=== PATIENT | male | born 1960 | race Caucasian/White ===

== ENCOUNTER 2017-02-16 18:15 | Emergency (ER) | payer OTHER ==
[~2017-02-16] VITALS: Ht 165.1 cm; Wt 82.0 kg
[~2017-02-16 18:15] MED LIST: ACYC-1 PO; ATOR80TA PO; AUGM875T PO; CLIN150 PO; LISI10TA PO; NAPR220T95 PO; PERC10TA27 PO; UREA20CR TOP
[2017-02-16 18:16] VITALS: BP 144/76; PULSE 86; RESP 20; TEMP 98.7; O2SAT 96
--- NOTE | 2017-02-16 18:23 | PD ---
HPI Chief Complaint: Injury Time Seen by Provider: 18:23 Travel History International Travel<30 days: No Contact w/Intl Traveler<30days: No Traveled to known affect area: No History of Present Illness HPI 56-year-old male presents emergency Department with complaint of left hand pain and left third digit pain after catching a football today and the ball hitting his finger, jamming it. Denies paresthesias, loss of sensation, , decreased range of motion to the affected hand. Pain is to the third metacarpal area. Has not taken any medications or tried any treatments to alleviate his symptoms. Allergies to mulberries. Has no other medical complaints. No other modifying factors or associated signs and symptoms. PFSH Past Medical History Arthritis: No Asthma: No Autoimmune Disease: No Anxiety: No Depression: No Cancer: No Cardiovascular Problems: No High Cholesterol: Yes Chemotherapy: No Chest Pain: No Congestive Heart Failure: No COPD: No Cerebrovascular Accident: No Diabetes: Yes Diminished Hearing: No (UNKNOWN ) Endocrine: No Gastrointestinal Disorders: No GERD: No Genitourinary: No Headaches: No Hiatal Hernia: No Immune Disorder: No Implanted Vascular Access Dvce: No Kidney Stones: No Musculoskeletal: No Neurologic: No Psychiatric: No Reproductive: No Respiratory: No Migraines: No Radiation Therapy: No Renal Failure: No Seizures: No Sickle Cell Disease: No Thyroid Disease: No Ulcer: No Past Surgical History Abdominal Surgery: No Cardiac Surgery: No Ear Surgery: No Endocrine Surgery: No Eye Surgery: No Genitourinary Surgery: Yes (VASECTOMY (1986) PER PATIENT) Neurologic Surgery: No Thoracic Surgery: No Other Surgery: Yes (SWEAT GLAND REMOVED FROM RECTAL AREA) Social History Alcohol Use: No ("QUIT 3 YEARS AGO) Tobacco Use: Yes (1/2 PACK) Substance Use: No ("NOT IN 3 YEARS") Allergies-Medications (Allergen,Severity, Reaction): Uncoded Allergies: Mulberries (Allergy, Severe, HIVES/BODY SWELLING, 08/31/13) PATIENT STATED AROUND 3 YEARS OLD HE BROKE OUT IN HIVES AND HAD SWELLING ALL OVER HIS BODY . PATIENT STATED NO OTHER KNOWN FOOD/DRUG ALLERGIES. Reported Meds & Prescriptions Reported Meds & Active Scripts Active Ibuprofen 800 Mg Tab 800 Mg PO Q6HR PRN Reported Aspirin 81 Mg Chew 81 Mg CHEW DAILY Atorvastatin (Atorvastatin Calcium) 10 Mg Tab 10 Mg PO HS Lisinopril-Hctz 10-12.5 Mg Tab 1 Tab PO DAILY Review of Systems Except as stated in HPI: all other systems reviewed are Neg Physical Exam Narrative GENERAL: Well-nourished, well-developed male patient, in no acute distress SKIN: Warm and dry. HEAD: Atraumatic. Normocephalic. EYES: Pupils equal and round. No scleral icterus. No injection or drainage. ENT: Mucosa pink and moist. Airway patent. NECK: Trachea midline. CARDIOVASCULAR: Regular rate. RESPIRATORY: No accessory muscle use. GASTROINTESTINAL: Rounded. MUSCULOSKELETAL: Left hand with tenderness on palpation at the area of the third metacarpal; with mild edema; without ecchymosis; or erythema; no obvious deformity; all fingers with sensory intact; all fingers with full range of motion. Left upper extremity is supple and non-tense with 2+ radial pulse and sensory intact. No obvious deformities. No clubbing. No cyanosis. NEUROLOGICAL: Awake and alert. Oriented 3. No obvious cranial nerve deficits. Motor grossly within normal limits. Normal speech. PSYCHIATRIC: Appropriate mood and affect; insight and judgment normal. Data Data Last Documented VS Vital Signs Date Time Temp Pulse Resp B/P Pulse Ox O2 Delivery O2 Flow Rate FiO2 02/16/17 18:16 98.7 86 20 144/76 96 Room Air Orders Hand, Complete ([id number]) (02/16/17 18:23) Ice/Cold Pack (02/16/17 18:23) Ibuprofen (Motrin) (02/16/17 18:30) Splint Or Brace Apply/Monitor (02/16/17 19:05) MDM Medical Decision Making Medical Screen Exam Complete: Yes Emergency Medical Condition: Yes Medical Record Reviewed: Yes Differential Diagnosis Finger fracture, finger sprain, hand sprain, hand fracture Narrative Course 56-year-old male with left hand injury. Ibuprofen, ice pack, left hand x-ray ordered. Left hand xray with no acute findings. Álvaro bandage provided for support. Ibuprofen prescribed for home. Instructed patient ot followup with PCP. Discussed reasons to return to the ER. Diagnosis Primary Impression: Injury of left hand Qualified Code: S69.92XA - Injury of left hand, initial encounter Referrals: Primary Care Physician Patient Instructions: Finger Sprain (ED), General Instructions, Hand Sprain (ED ) Additional Instructions: Tylenol or ibuprofen as directed and as needed to reduce pain Rest, ice, compress, and elevate extremity to decrease pain and inflammation Álvaro wrap for support Avoid aggravating activity; increase activity as tolerated Follow-up with primary care provider Return to the emergency department immediately with worsening symptoms Med/Other Pt SpecificInfo: Prescription(s) given Scripts Ibuprofen 800 Mg [id number] Mg PO Q6HR PRN (PAIN) #30 TAB Ref 0 Prov:Machelle Boo 02/16/17 Disposition: 01 DISCHARGE HOME Condition: Stable Machelle Boo February 16, 2017 18:23
[2017-02-16] MEDS ORDERED: LISI10TA PO (18:25)
[2017-02-16] MEDS ORDERED: ATOR10TA15 PO (18:25)
[2017-02-16] MEDS ORDERED: ASPI81CH CHEW (18:25)
[2017-02-16] MEDS ORDERED: IBUPROFEN 800 MG TAB PO ONE (18:30)
[2017-02-16] MEDS ORDERED: IBUP800T23 PO (18:45)
--- NOTE | 2017-02-16 19:10 | RADRPT ---
EXAM DATE/TIME: 02/16/2017 18:40 [facility] COMPARISON: No previous studies available for comparison. INDICATIONS : Hurt hand catching football, pain in 3rd digit. MEDICAL HISTORY : None. SURGICAL HISTORY : None. ENCOUNTER: Initial ACUITY: 1 day PAIN SCORE: 0/10 LOCATION: Left hand FINDINGS: Three view examination of the left hand demonstrates no dislocation or fracture. Mild soft tissue s welling is noted involving the left third digit. The carpal bones appear intact. The interphalangeal and metacarpophalangeal joints are intact. Bony mineralization is normal. CONCLUSION: No acute fracture or dislocation. Mild soft tissue swelling involving the left third digit. Burak Thomas MD on February 16, 2017 at 19:06 Board Certified Radiologist. This report was verified electronically.
== END 2017-02-16 19:23 | disposition home or self-care (01) ==
LOC: NEPK 18:15
DX: S69.92XA Unspecified injury of left wrist, hand and finger(s), initial encounter (principal); E78.00 Pure hypercholesterolemia, unspecified; E11.9 Type 2 diabetes mellitus without complications; F17.200 Nicotine dependence, unspecified, uncomplicated; W23.0XXA Caught, crushed, jammed, or pinched between moving objects, initial encounter; Y93.61 Activity, american tackle football
CPT/HCPCS: 73130; 99283